=== PATIENT | female | born 1960 | race Caucasian/White ===

== ENCOUNTER 2018-09-04 05:59 | Inpatient (IN) | payer OTHER ==
[2018-09-04] MEDS ORDERED: VASOPRESSIN 20 UNITS INJ (06:59)
[2018-09-04] MEDS ORDERED: DESFLURANE 15 MIN (07:00)
[2018-09-04] MEDS: ACETAMINOPHEN 500 MG TAB PO (07:08)
[2018-09-04] MEDS: LACTATED RINGER'S 1,000 ML IV ×5 (07:14→19:25)
[2018-09-04] MEDS ORDERED: ROCURONIUM 50 MG INJ (07:18)
[2018-09-04] MEDS ORDERED: CEFAZOLIN 1 GM INJ (07:18)
[2018-09-04] MEDS ORDERED: MIDAZOLAM 1 MG/ML 2 ML INJ (07:18)
[2018-09-04] MEDS ORDERED: FENTAnyl 50 MCG/ML VIAL ×2 (07:18→08:36)
[2018-09-04] MEDS ORDERED: PROPOFOL 40 ML (07:18)
[2018-09-04] MEDS ORDERED: FAMOTIDINE 20 MG INJ (07:20)
[2018-09-04] MEDS ORDERED: ONDANSETRON 4 MG INJ (07:20)
[2018-09-04] MEDS ORDERED: FENTAnyl 50 MCG/ML VIAL IV ×2 (08:00)
[2018-09-04] MEDS ORDERED: ONDANSETRON 4 MG INJ IV ×2 (08:00→09:30)
[2018-09-04] MEDS ORDERED: DIPHENHYDRAMINE 50 MG INJ IV (08:00)
[2018-09-04] MEDS ORDERED: HYDROmorphONE 1 MG/5 ML IV SYRINGE IV ×3 (08:00)
[2018-09-04] MEDS ORDERED: LABETALOL HCL 20MG INJ IV (08:00)
[2018-09-04] MEDS ORDERED: OXYCODONE/ACETAMINOPHEN (5/325) TAB PO ×2 (08:00)
[2018-09-04] MEDS ORDERED: SUGAMMADEX SODIUM 200 MG/2 ML VIAL IV (08:00)
[2018-09-04] MEDS ORDERED: morphine 2 MG INJ IV ×2 (08:00)
[2018-09-04] MEDS ORDERED: MEPERIDINE 25 MG INJ IV (08:00)
[2018-09-04] MEDS ORDERED: ALBUTEROL 0.083% (NEB) 2.5 MG/3 ML AMP HHN (08:00)
[2018-09-04] MEDS ORDERED: PHENYLephrine (100 MCG/ML) 10ML SYG (08:01)
[2018-09-04] MEDS ORDERED: PROVENTIL HFA 6.7GM INHALER (09:05)
[2018-09-04] MEDS ORDERED: HYDROCODONE/APAP (5/325) TAB PO (13:00)
[2018-09-04] MEDS: HYDROCODONE/APAP (5/325) TAB PO (13:52)
[2018-09-04] MEDS: IBUPROFEN 800 MG TAB PO (21:59)
[2018-09-05] MEDS: MAGNESIUM HYDROXIDE 30ML CUP PO ×2 (05:09→12:04)
[2018-09-05 05:10] LABS: ADD MAN DIFF? NO
[2018-09-05] MEDS: BISACODYL 10 MG SUPP PR ×2 (05:10→12:04)
[2018-09-05] MEDS: LACTATED RINGER'S 1,000 ML IV ×3 (05:10→17:16)
[2018-09-05 05:15] LABS: BASOPHILS % 0.4 % (0.0-2.0); EOSINOPHILS # 0.1 10^3/ul (0.0-0.5); EOSINOPHILS % 1.9 % (0.0-7.0); HEMATOCRIT 34.4 % (37.0-47.0); HEMOGLOBIN 11.2 g/dl (12.0-16.0); LYMPHOCYTES # 1.9 10^3/ul (0.8-2.9); LYMPHOCYTES % 27.1 % (15.0-51.0); MEAN CORPUSCULAR HEMOGLOBIN 29.9 pg (29.0-33.0); MEAN CORPUSCULAR HGB CONC 32.6 g/dl (32.0-37.0); MEAN PLATELET VOLUME 9.6 fl (7.4-10.4); MONOCYTE # 0.5 10^3/ul (0.3-0.9); MONOCYTES % 7.7 % (0.0-11.0); NEUTROPHIL # 4.4 10^3/ul (1.6-7.5); NEUTROPHILS % 62.5 % (39.0-77.0); PLATELET COUNT 275 10^3/UL (140-415); RED BLOOD COUNT 3.74 10^6/ul (4.20-5.40); RED CELL DISTRIBUTION WIDTH 12.7 % (11.5-14.5)
[2018-09-05 05:53] LABS: ALANINE AMINOTRANSFERASE 17 IU/L (13-69); ALBUMIN 3.2 g/dl (3.3-4.9); ALBUMIN/GLOBULIN RATIO 1.06; ALKALINE PHOSPHATASE 63 IU/L (42-121); ANION GAP 5 (5-13); ASPARTATE AMINO TRANSFERASE 22 IU/L (15-46); BILIRUBIN,INDIRECT 0.3 mg/dl (0-1.1); BILIRUBIN,TOTAL 0.3 mg/dl (0.2-1.3); BLOOD UREA NITROGEN 8 mg/dl (7-20); CALCIUM 8.9 mg/dl (8.4-10.2); CARBON DIOXIDE 29 mmol/L (21-31); CHLORIDE 108 mmol/L (97-110); CREATININE 0.72 mg/dl (0.44-1.00); Estimated GFR > 60 mL/min (>60); GLUCOSE 101 mg/dl (70-220); POTASSIUM 4.2 mmol/L (3.5-5.1); SODIUM 142 mmol/L (135-144); TOTAL PROTEIN 6.2 g/dl (6.1-8.1)
[2018-09-05] MEDS: IBUPROFEN 800 MG TAB PO (14:46)
[2018-09-05] MEDS ORDERED: IBUPROFEN 800 MG TAB PO (18:00)
[2018-09-05] MEDS ORDERED: HYDROCODONE/APAP (5/325) TAB PO ×2 (18:00)
== END 2018-09-05 18:35 | disposition home or self-care (01) | DRG 747 ==
LOC: SDS 05:59 → REC 09:16 → MS1 10:29
PROVIDERS: Obstetrics & Gynecology
PROC: 0JQC3ZZ Repair Pelvic Region Subcutaneous Tissue and Fascia, Percutaneous Approach (ICD-10-PCS; principal; 2018-09-04 07:20)
PROC: 0UBGXZZ Excision of Vagina, External Approach (ICD-10-PCS; 2018-09-04 07:20)
PROC: 0JQC3ZZ Repair Pelvic Region Subcutaneous Tissue and Fascia, Percutaneous Approach (ICD-10-PCS; 2018-09-04 07:20)
DX: N81.10 Cystocele, unspecified (principal); N81.6 Rectocele
CPT/HCPCS: 80053; 84702; 85025; 86850; 86900; 86901; 87086; 88305